=== PATIENT | female | born 1980 | race Caucasian/White ===

== ENCOUNTER 2017-04-12 12:54 | Emergency (ER) | payer MEDICAID, OTHER ==
[~2017-04-12] VITALS: Ht 152.4 cm; Wt 72.0 kg
[2017-04-12] MEDS ORDERED: METF500T4 PO (13:12)
[2017-04-12] MEDS ORDERED: KETOROLAC 60MG/2ML VIAL IM ONE (15:30)
[2017-04-12 16:01] VITALS: BP 123/74
== END 2017-04-12 17:04 | disposition home or self-care (01) ==
LOC: ER 16:22
DX: S90.112A Contusion of left great toe without damage to nail, initial encounter (principal); E11.9 Type 2 diabetes mellitus without complications; W22.8XXA Striking against or struck by other objects, initial encounter; Y93.89 Activity, other specified; Y92.018 Other place in single-family (private) house as the place of occurrence of the external cause
CPT/HCPCS: 73660; 96372; 99284; J1885

== ENCOUNTER 2017-04-15 06:59 | Emergency (ER) | payer MEDICAID, OTHER ==
[~2017-04-15] VITALS: Ht 157.5 cm; Wt 73.0 kg
[~2017-04-15 06:59] MED LIST: METF500T4 PO
[2017-04-15 08:56] VITALS: BP 112/66
== END 2017-04-15 08:57 | disposition home or self-care (01) ==
LOC: ER 08:53
DX: S91.202A Unspecified open wound of left great toe with damage to nail, initial encounter (principal); E11.9 Type 2 diabetes mellitus without complications; Z79.4 Long term (current) use of insulin; W45.8XXA Other foreign body or object entering through skin, initial encounter; Y93.89 Activity, other specified; Y92.89 Other specified places as the place of occurrence of the external cause; Y99.8 Other external cause status
CPT/HCPCS: 99281